=== PATIENT | male | born 1970 | race Caucasian/White ===

== ENCOUNTER 2019-09-05 16:24 | Emergency (ER) | payer OTHER ==
[2019-09-05 16:31] VITALS: BP 138/94; PULSE 98; RESP 18; TEMP 97.9
--- NOTE | 2019-09-05 17:44 | XR ---
EXAMINATION TYPE: XR finger LT DATE OF EXAM: 09/05/2019 CLINICAL HISTORY: pain Right second digit. TECHNIQUE: 3 views of the Right second digit are submitted. COMPARISON: None FINDINGS: No displaced fracture is seen with certainty. Joint spaces are well-preserved. Correlate for soft tissue injury. IMPRESSION: No acute displaced fracture or dislocation.
[2019-09-05] MEDS ORDERED: CEPHALEXIN 500MG STARTER PACK 4 CAP BTL PO STA (18:20)
--- NOTE | 2019-09-05 18:21 | ED ---
General Adult HPI - General Chief complaint: Skin/Abscess/Foreign Body Stated complaint: Finger pain Time Seen by Provider: 09/05/19 16:33 Source: patient, RN notes reviewed, old records reviewed Mode of arrival: ambulatory Limitations: no limitations - History of Present Illness Initial comments: 48-year-old male patient with no pertinent past history presents to ED chief complaint of nonhealing scab to lateral aspect of second digit left hand. Patient reports it has been ongoing for approximately 2 months. Patient was seen at an emergency room in [place] approximately one month ago with a prescribed a steroid pain. Patient denies any other complaints. Denies any systemic symptoms of infection. Denies any recent have a poor immune system including HIV or asplenia. Denies any IV drug use. Patient ports that it is slightly tender to touch. However denies any other complaints. Systemic: Pt denies fatigue, fever/chills, rash. Pt denies weakness, night sweats, weight loss. Neuro: Pt denies headache, visual disturbances, syncope or pre-syncope. HEENT: Pt denies ocular discharge or irritation, otalgia, rhinorrhea, pharyngitis or notable lymphadenopathy. Cardiopulmonary: Pt denies chest pain, SOB, heart palpitations, dyspnea on exertion. Abdominal/GI: Pt denies abdominal pain, n/v/d. : Pt denies dysuria, burning w/ urination, frequency/urgency. Denies new onset urinary or bowel incontinence. MSK: Pt denies myalgia, loss of strength or function in extremities. Neuro: Pt denies new onset weakness, paresthesias. - Related Data Previous Rx's Medication Instructions Recorded Cephalexin [Keflex] 500 mg PO Q6HR 7 Days #28 cap 09/05/19 Allergies Allergy/AdvReac Type Severity Reaction Status Date / Time No Known Allergies Allergy Verified 09/05/19 16:27 Review of Systems ROS Statement: Those systems with pertinent positive or pertinent negative responses have been documented in the HPI. ROS Other: All systems not noted in ROS Statement are negative. Past Medical History Past Medical History: No Reported History History of Any Multi-Drug Resistant Organisms: None Reported Past Surgical History: No Surgical Hx Reported Past Psychological History: No Psychological Hx Reported Smoking Status: Current every day smoker Past Alcohol Use History: Occasional Past Drug Use History: None Reported General Exam - General Exam Comments Initial Comments: Constitutional: NAD, AOX3, Pt has pleasant affect. HEENT: NC/AT, trachea midline, neck supple, no lymphadenopathy. Posterior pharyn x non erythematous, without exudates. External ears appear normal, without discharge. Mucous membranes moist. Eyes PERRLA, EOM intact. There is no scleral icterus. No pallor noted. Cardiopulmonary: RRR, no murmurs, rubs or gallops, no JVD noted. Lungs CTAB in anterior and posterior peck. No peripheral edema. Abdominal exam: Abdomen soft and non-distended. Abdomen non-tender to palpation in all 4 quadrants. Bowel sounds active in LLQ. No hepatosplenomegaly. No ecchymosis Neuro: CN II-XII grossly intact. No nuchal rigidity. No raccon eyes, no landry sign, no hemotympanum. No cervical spinal tenderness. MSK: Healing scab lateral aspect of second digit of left hand 1 cm diameter. Very small amount of surrounding erythema. Full active range of motion of digit. No percussion tenderness. Capillary refill less than 2 seconds. No streaking. Neurovascularly intact. No posterior calf tenderness bilaterally, homans sign negative bilaterally. Posterior tibialis and radial pulse +2 bilat erally. Sensation intact in upper and lower extremities. Full active ROM in upper and lower extremities, 5/5 stregnth. Limitations: no limitations Course Vital Signs 09/05/19 16:28 Temperature 97.9 F Pulse Rate 98 Respiratory 18 Rate Blood Pressure 138/94 O2 Sat by Pulse 95 Oximetry Medical Decision Making - Medical Decision Making 48-year-old male patient presents to ED chief complaint of nonhealing scab on index finger of left hand has been ongoing for 2 months. Denies any other complaints. Patient vital signs are stable, afebrile. Physical exam displayed a appears to be healing scab approximately 1 cm in diameter, very small amount of surrounding erythema. I film was negative. Full active range of motion of digit. No percussion tenderness, no concern for flexor tenosynovitis. Patient was placed on Keflex will be discharged with outpatient primary care and dermatology follow-up. Case discussed and patient seen by Dr. Nicole. Disposition Clinical Impression: Finger pain, left Disposition: HOME SELF-CARE Condition: Stable Instructions (If sedation given, give patient instructions): Wound Healing and Your Diet (ED), Chronic Wounds (ED) Additional Instructions: Take medication as directed. Follow up with primary care provider and d ermatology consult tomorrow. Return to ER if condition worsens in any way. Prescriptions: Cephalexin [Keflex] 500 mg PO Q6HR 7 Days #28 cap Is patient prescribed a controlled substance at d/c from ED?: No Referrals: None,Stated [Primary Care Provider] - 1-2 days [facility] [NON-STAFF] - 1-2 days Idania Sharma MD [STAFF PHYSICIAN] - 1-2 days
== END 2019-09-05 18:28 | disposition home or self-care (01) ==
LOC: EC 16:24
DX: M79.645 Pain in left finger(s) (principal); F17.200 Nicotine dependence, unspecified, uncomplicated
CPT/HCPCS: 99284

== ENCOUNTER 2021-01-11 14:50 | Emergency (ER) | payer OTHER ==
[2021-01-11 14:58] VITALS: BP 146/90; PULSE 115; RESP 16; TEMP 98.7
[2021-01-11] MEDS ORDERED: ACET/COD 300 MG/30 MG STARTER PACK 6 TAB BTL PO STA (15:13)
[2021-01-11] MEDS ORDERED: AMOXIC-POT CLAV 875MG STARTER PACK 2 TAB BTL PO STA (15:13)
[2021-01-11] MEDS ORDERED: BENZOCAINE 20 % GEL 15 GM TUBE MM STA (15:13)
[2021-01-11] MEDS ORDERED: KETOROLAC 15 MG/ML 1 ML VIAL IM STA (15:13)
--- NOTE | 2021-01-11 15:16 | ED ---
General Adult HPI - General Chief complaint: Dental/Oral Stated complaint: Tooth Abscess Time Seen by Provider: 01/11/21 15:06 Source: patient Mode of arrival: ambulatory Limitations: no limitations - History of Present Illness Initial comments: 50-year-old male patient presents to the emergency department today for evaluation of right lower dental pain. Patient states pain started on Thursday he developed swelling to the outside of his face. He denies any fever or chills. Denies nausea vomiting. Denies any trismus or difficulty swelling. States he does have very poor dentition is been trying to get into the dentist. Has not been on any antibiotics for this. Take over the counter pain medication. - Related Data Previous Rx's Medication Instructions Recorded Amoxic-Pot Clav 875-125Mg 1 tab PO Q12HR #20 tablet 01/11/21 [Augmentin 875-125] Ibuprofen [Motrin] 600 mg PO Q8HR PRN #30 tab 01/11/21 Allergies Allergy/AdvReac Type Severity Reaction Status Date / Time No Known Allergies Allergy Verified 09/05/19 16:27 Review of Systems ROS Statement: Those systems with pertinent positive or pertinent negative responses have been documented in the HPI. ROS Other: All systems not noted in ROS Statement are negative. Past Medical History Past Medical History: No Reported History History of Any Multi-Drug Resistant Organisms: None Reported Past Surgical History: No Surgical Hx Reported Past Psychological History: No Psychological Hx Reported Smoking Status: Current every day smoker Past Alcohol Use History: Occasional Past Drug Use History: None Reported General Exam Limitations: no limitations General appearance: alert, in no apparent distress, other (This is a well- developed, well-nourished adult male patient in no acute distress. Vital signs upon presentation temperature 98.7F, pulse 1:15, respirations 16, blood pressure 146/90, pulse ox 96% on room air.) Eye exam: Present: normal appearance, PERRL, EOMI. Absent: scleral icterus, conjunctival injection, periorbital swelling ENT exam: Present: mucous membranes moist, other (periapical abscess noted to the area surrounding teeth #s 28 and 29 which are fractured down to gumline. There is surrounding erythema and tenderness.). Absent: normal oropharynx Neck exam: Present: normal inspection. Absent: tenderness, meningismus, lymphadenopathy Respiratory exam: Present: normal lung sounds bilaterally. Absent: respiratory distress, wheezes, rales, rhonchi, stridor Cardiovascular Exam: Present: regular rate, normal rhythm, normal heart sounds. Absent: systolic murmur, diastolic murmur, rubs, gallop, clicks Neurological exam: Present: alert, oriented X3, CN II-XII intact Psychiatric exam: Present: normal affect, normal mood Skin exam: Present: warm, dry, intact, normal color. Absent: rash Course Vital Signs 01/11/21 14:54 Temperature 98.7 F Pulse Rate 115 H Respiratory 16 Rate Blood Pressure 146/90 O2 Sat by Pulse 96 Oximetry Procedures - Incision & Drainage Consent Obtained: verbal consent Indication: dental abscess Site: other (periapical) Size (cm): 3 Anesthetic Used: benzocaine 0.25% (topical) Needle Aspiration Performed?: Yes I&D Drainage Obtained: Pus, Blood Patient Tolerated Procedure: well, no complications Medical Decision Making - Medical Decision Making 50-year-old male patient presents to the emergency department today for evaluation of pain and swelling to the right lower dentition. Physical examination did reveal facial swelling. No erythema. Intraoral inspection did reveal periapical abscess near teeth #28 and 29. Orajel was applied, I did puncture the abscess with an 18-gauge needle and had large amount of foul- smelling pus and bloody drainage. Patient was started on Augmentin. Given medication for pain. Instructed to follow-up with dentistry as soon as possible. Return parameters were discussed in detail. He verbalizes understanding and agrees with this plan. My attending is Dr. Dennis. Disposition Clinical Impression: Dental abscess Disposition: HOME SELF-CARE Condition: Good Instructions (If sedation given, give patient instructions): Dental Abscess (ED), Toothache (ED) Additional Instructions: Complete antibiotics in full. Take medications as directed for pain. Follow up with dentist as soon as possible. Return to the emergency department for any new, worsening, or concerning symptoms. Consider calling the [facility] . Prescriptions: Amoxic-Pot Clav 875-125Mg [Augmentin 875-125] 1 tab PO Q12HR #20 tablet Ibuprofen [Motrin] 600 mg PO Q8HR PRN #30 tab PRN Reason: Pain Is patient prescribed a controlled substance at d/c from ED?: No Referrals: None,Stated [Primary Care Provider] - 1-2 days Time of Disposition: 15:56
== END 2021-01-11 16:05 | disposition home or self-care (01) ==
LOC: EC 14:50
DX: K04.7 Periapical abscess without sinus (principal); S02.5XXA Fracture of tooth (traumatic), initial encounter for closed fracture; F17.200 Nicotine dependence, unspecified, uncomplicated; X58.XXXA Exposure to other specified factors, initial encounter
CPT/HCPCS: 41800; 99282

== ENCOUNTER 2023-04-26 02:41 | Inpatient (IN) | payer OTHER ==
[2023-04-26] MEDS ORDERED: LORazepam 2 MG/ML INJ IM PRN (02:43)
[2023-04-26] MEDS ORDERED: SODIUM CHLORIDE 0.9% 1,000 ML IV STA (02:43)
[2023-04-26] MEDS ORDERED: HALOPERIDOL LACTATE 5 MG/ML 1 ML VIAL IM PRN (02:43)
[2023-04-26 03:01] LABS: Basophils # (A) 0.1 k/uL (0-0.2); Basophils % (A) 1 %; Eosinophils # (A) 0.4 k/uL (0-0.7); Eosinophils % (A) 4 %; HCT 41.9 % (39.0-53.0); HGB 14.3 gm/dL (13.0-17.5); Lymphocytes % (A) 36 %; MCH 34.6 pg (25.0-35.0); MCV 101.6 fL (80.0-100.0); Mean Platelet Volume 7.9; Monocytes # (A) 0.7 k/uL (0-1.0); Monocytes % (A) 8 %; Neutrophils # (A) 4.1 k/uL (1.3-7.7); Neutrophils % (A) 49 %; Platelet Count 182 k/uL (150-450); RBC 4.13 m/uL (4.30-5.90); WBC 8.4 k/uL (3.8-10.6)
[2023-04-26 03:10] LABS: INR 0.9 (<1.2); Partial Thromboplastin Time 22.2 sec (22.0-30.0); Prothrombin Time 9.5 sec (9.0-12.0)
[2023-04-26 03:13] LABS: ALT 45 U/L (4-49); AST 66 U/L (17-59); African American GFR (CKD) >90 (>60 ml/min/1.73 sqM); Albumin 3.8 g/dL (3.5-5.0); Alkaline Phosphatase 53 U/L (38-126); Anion Gap 12 mmol/L; Blood Urea Nitrogen 14 mg/dL (9-20); Calcium 8.5 mg/dL (8.4-10.2); Carbon Dioxide 20 mmol/L (22-30); Chloride 105 mmol/L (98-107); Glucose 106 mg/dL (74-99); Non-African American GFR(CKD) >90 (>60 ml/min/1.73 sqM); Sodium 137 mmol/L (137-145); Total Bilirubin 0.3 mg/dL (0.2-1.3)
--- NOTE | 2023-04-26 03:16 | ED ---
General Adult HPI - General Chief complaint: Alcohol Stated complaint: ETOH Time Seen by Provider: 04/26/23 02:42 Source: patient, police, EMS, RN notes reviewed, old records reviewed Mode of arrival: EMS Limitations: no limitations - History of Present Illness Initial comments: Patient is a 52-year-old male who presents with the department acute ataxia with alcohol as well as combative with police as well as EMS. Per EMS, patient was found down outside a bar. He was lying on the ground. Apparently unresponsive is bystanders were trying to awaken him. As soon as EMS arrived, patient woke up with sternal rubbing. He began punching at EMS as well as police. Patient was placed in handcuffs and brought to the emergency department for further e valuation. Smells of alcohol. His acutely intoxicated. Does appear somewhat confused but knows what year it is, who he is. Uncertain where he is. Uncertain what happened. Denies any other acute complaints at this time. Presents for further evaluation at this time. Does endorse drinking alcohol this evening. - Related Data Home Medications Medication Instructions Recorded Confirmed Unable To Assess [Unable to Assess] 04/26/23 04/26/23 Allergies Allergy/AdvReac Type Severity Reaction Status Date / Time No Known Allergies Allergy Verified 09/05/19 16:27 Review of Systems ROS Statement: Those systems with pertinent positive or pertinent negative responses have been documented in the HPI. Review of Systems: CONST: Denies fever EYES: Denies blurry vision ENT: Denies nasal congestion C/V: Denies Chest pain RESP: Denies shortness of breath GI: Denies abdominal pain : Denies dysuria SKIN: Denies rash. MSK: Denies joint pain. NEURO: Denies headache ROS Other: All systems not noted in ROS Statement are negative. Past Medical History Past Medical History: No Reported History History of Any Multi-Drug Resistant Organisms: None Reported Past Surgical History: No Surgical Hx Reported Past Psychological History: No Psychological Hx Reported Smoking Status: Current every day smoker Past Alcohol Use History: Occasional Past Drug Use History: None Reported General Exam - General Exam Comments Initial Comments: General: Appears in no acute distress. HEAD: Normal with no signs of head trauma. EYES: PERRLA, EOMI, conjunctiva normal, no discharge. Pupils 3 mm and equal bilaterally. ENT: Hearing grossly intact, normal oropharynx. RESPIRATORY: Clear breath sounds bilaterally. No wheezes, rales, or rhonchi. C/V: Regular rate and rhythm. S1 and S2 auscultated, no edema, peripheral pulses 2+ and intact throughout ABD: Abd is soft, nontender, nondistended EXT: Normal range of motion, no obvious deformity SKIN: No rashes or lesions observed on exposed skin. NEURO: Alert and oriented 2-3. Is acutely intoxicated with alcohol. Moving all 4 extremities. No obvious deficits. Limitations: no limitations Course Vital Signs 04/26/23 04/26/23 04/26/23 02:42 08:09 11:12 Temperature 98.1 F 98 F 98.9 F Pulse Rate 88 68 92 Respiratory 18 20 16 Rate Blood Pressure 134/89 92/60 109/67 O2 Sat by Pulse 99 95 96 Oximetry Procedures - Restraint - Face to Face Restraint Occurrence 1 Patient's Immediate Situation: Endangers others' safety, Endangers staff safety Patient's Reaction to the Intervention: Angry Patient's Medical & Behavioral Condition: Awake Need to Continue or Terminate Restraint or Seclusion: Continue Face to Face Eval of Restraint Date: 04/26/23 Face to Face Eval of Restraint Time: 05:30 Medical Decision Making - Medical Decision Making Was pt. sent in by a medical professional or institution (, PA, RETIREMENT PLAN SPECIALIST, urgent care, hospital, or long-term...) When possible be specific @ -No Did you speak to anyone other than the patient for history (EMS, parent, family, police, friend...)? What history was obtained from this source @ -No Did you review nursing and triage notes (agree or disagree)? Why? @ -I reviewed and agree with nursing and triage notes Were old charts reviewed (outside hosp., previous admission, EMS record, old EKG, old radiological studies, urgent care reports/EKG's, long-term records)? Report findings @ -No old charts were reviewed Differential Diagnosis (chest pain, altered mental status, abdominal pain women, abdominal pain men, vaginal bleeding, weakness, fever, dyspnea, syncope, headache, dizziness, GI bleed, back pain, seizure, CVA, palpatations, mental health, musculoskeletal)? @ -Differential Altered Mental Status: Hypoglycemia, DKA, hypercapnia, ETOH, overdose, CO poisoning, trauma, myxedema coma, HTN encephalopathy, infection, encephalitis, psychosis, intercranial hemorrhage, hepatic encephalopathy, meningitis, CVA, this is not meant to be an all-inclusive list EKG interpreted by me (3pts min.). @ -As above X-rays interpreted by me (1pt min.). @ -Chest x-ray revealed no obvious acute cardiopulmonary process. CT interpreted by me (1pt min.). @ -Pending U/S interpreted by me (1pt. min.). @ -None done What testing was considered but not performed or refused? (CT, X-rays, U/S, labs)? Why? @ -None What meds were considered but not given or refused? Why? @ -None Did you discuss the management of the patient with other professionals (professionals i.e. , PA, RETIREMENT PLAN SPECIALIST, lab, RT, psych nurse, social sciences professor, internet sales associate, teacher, contracts officer, piano case and bench assembler)? Give summary @ -No Was smoking cessation discussed for >3mins.? @ -No Was critical care preformed (if so, how long)? @ -No Were there social determinants of health that impacted care today? How? (Homelessness, low income, unemployed, alcoholism, drug addiction, transportation, low edu. Level, literacy, decrease access to med. care, longterm, rehab)? @ -No Was there de-escalation of care discussed even if they declined (Discuss DNR or withdrawal of care, Hospice)? DNR status @ -No What co-morbidities impacted this encounter? (DM, HTN, Smoking, COPD, CAD, Cancer, CVA, ARF, Chemo, Hep., AIDS, mental health diagnosis, sleep apnea, morbid obesity)? @ -None Was patient admitted / discharged? Hospital course, mention meds given and route, prescriptions, significant lab abnormalities, going to OR and other pertinent info. @ -Based on the patient's presentation and physical exam, I'm concerned for acute alcohol intoxication for the patient. Cannot rule out other etiology at this time and therefore broad workup will be obtained including CT brain. He was in agreement this plan. He initially was not cooperative but became cooperative. Vital signs are within acceptable limits. When necessary Haldol and Ativan ordered if the patient becomes agitated again but currently is cooperative. EKG showed no evidence of acute ischemia. Patient's laboratory studies are remarkable for alcohol level of 439. Remainder of the labs are within acceptable limits.Chest x-ray showed no evidence of acute cardiopulmonary process. CT brain was attempted multiple times. Patient became more agitated at one point, started up and hit his head on the TV causing a small laceration/abrasion. This will require closure. No double provider Demetris will close this. He required multiple medications for agitation and also was restrained. [id number] that was completed by myself. Patient urinated and vomited in the CT scanner on initial attempts and was agitated on other times. Finally patient was able to obtain CT imaging and this is still pending. Patient signed out to Dr. Sheriff pending results of CT and will be admitted afterwards. Undiagnosed new problem with uncertain prognosis? @ -No Drug Therapy requiring intensive monitoring for toxicity (Heparin, Nitro, Insulin, Cardizem)? @ -No Were any procedures done? @ -No Diagnosis/symptom? @ -Alcohol Intoxication, fall, head abrasion Acute, or Chronic, or Acute on Chronic? @ -Acute Uncomplicated (without systemic symptoms) or Complicated (systemic symptoms)? @ -Complicated Side effects of treatment? @ -none Exacerbation, Progression, or Severe Exacerbation] @ -no Poses a threat to life or bodily function? @ -Yes - Lab Data Result diagrams: 04/26/23 02:53 04/26/23 02:53 Lab Results 04/26/23 04/26/23 04/26/23 Range/Units 02:53 02:53 02:53 WBC 8.4 (3.8-10.6) k/uL RBC 4.13 L (4.30-5.90) m/uL Hgb 14.3 (13.0-17.5) gm/dL Hct 41.9 (39.0-53.0) % MCV 101.6 H (80.0-100.0) fL MCH 34.6 (25.0-35.0) pg MCHC 34.0 (31.0-37.0) g/dL RDW 12.0 (11.5-15.5) % Plt Count 182 (150-450) k/uL MPV 7.9 Neutrophils % 49 % Lymphocytes % 36 % Monocytes % 8 % Eosinophils % 4 % Basophils % 1 % Neutrophils # 4.1 (1.3-7.7) k/uL Lymphocytes # 3.0 (1.0-4.8) k/uL Monocytes # 0.7 (0-1.0) k/uL Eosinophils # 0.4 (0-0.7) k/uL Basophils # 0.1 (0-0.2) k/uL PT 9.5 (9.0-12.0) sec INR 0.9 (<1.2) APTT 22.2 (22.0-30.0) sec Sodium 137 (137-145) mmol/L Potassium 4.0 (3.5-5.1) mmol/L Chloride 105 (98-107) mmol/L Carbon Dioxide 20 L (22-30) mmol/L Anion Gap 12 mmol/L BUN 14 (9-20) mg/dL Creatinine 0.64 L (0.66-1.25) mg/dL Est GFR (CKD-EPI)AfAm >90 (>60 ml/min/1.73 sqM) Est GFR (CKD-EPI)NonAf >90 (>60 ml/min/1.73 sqM) Glucose 106 H (74-99) mg/dL POC Glucose (mg/dL) (70-110) mg/dL POC Glu Tread Tuber Machine Operator ID Calcium 8.5 (8.4-10.2) mg/dL Total Bilirubin 0.3 (0.2-1.3) mg/dL AST 66 H (17-59) U/L ALT 45 (4-49) U/L Alkaline Phosphatase 53 (38-126) U/L Ammonia (<30) umol/L Total Protein 6.0 L (6.3-8.2) g/dL Albumin 3.8 (3.5-5.0) g/dL Serum Alcohol 439 H* mg/dL 04/26/23 04/26/23 Range/Units 02:53 03:58 WBC (3.8-10.6) k/uL RBC (4.30-5.90) m/uL Hgb (13.0-17.5) gm/dL Hct (39.0-53.0) % MCV (80.0-100.0) fL MCH (25.0-35.0) pg MCHC (31.0-37.0) g/dL RDW (11.5-15.5) % Plt Count (150-450) k/uL MPV Neutrophils % % Lymphocytes % % Monocytes % % Eosinophils % % Basophils % % Neutrophils # (1.3-7.7) k/uL Lymphocytes # (1.0-4.8) k/uL Monocytes # (0-1.0) k/uL Eosinophils # (0-0.7) k/uL Basophils # (0-0.2) k/uL PT (9.0-12.0) sec INR (<1.2) APTT (22.0-30.0) sec Sodium (137-145) mmol/L Potassium (3.5-5.1) mmol/L Chloride (98-107) mmol/L Carbon Dioxide (22-30) mmol/L Anion Gap mmol/L BUN (9-20) mg/dL Creatinine (0.66-1.25) mg/dL Est GFR (CKD-EPI)AfAm (>60 ml/min/1.73 sqM) Est GFR (CKD-EPI)NonAf (>60 ml/min/1.73 sqM) Glucose (74-99) mg/dL POC Glucose (mg/dL) 88 (70-110) mg/dL POC Glu Tread Tuber Machine Operator ID Ralph Menard Calcium (8.4-10.2) mg/dL Total Bilirubin (0.2-1.3) mg/dL AST (17-59) U/L ALT (4-49) U/L Alkaline Phosphatase (38-126) U/L Ammonia <9 (<30) umol/L Total Protein (6.3-8.2) g/dL Albumin (3.5-5.0) g/dL Serum Alcohol mg/dL - EKG Data -: EKG Interpreted by Me EKG Comments: 12-lead Electrocardiogram Interpretation Note EKG was reviewed and interpreted by myself. 12-lead ECG performed at 0249 is interpreted by me as revealing normal sinus rhythm at a rate of 85 beats per minute. [place] is normal. NV interval is 152 ms, QRS duration is 116 ms, QTc is 407 ms.. There were no ST or T wave abnormalities to suggest myocardial ischemia or injury. R wave progression across the precordium was satisfactory. By my interpretation this EKG is non-diagnostic for acute ischemia. Disposition Clinical Impression: Alcoholic intoxication, Fall, Abrasion Disposition: ADMITTED IP TO THIS HOSP Condition: Stable
[2023-04-26 03:30] LABS: Alcohol 439 mg/dL
[2023-04-26 04:00] LABS: Glucose,Whole Blood 88 mg/dL (70-110)
[2023-04-26] MEDS ORDERED: HALOPERIDOL LACTATE 5 MG/ML 1 ML VIAL IVP STA ×2 (04:32→05:31)
[2023-04-26] MEDS ORDERED: LORazepam 2 MG/ML INJ IV STA (05:33)
--- NOTE | 2023-04-26 06:01 | XR ---
EXAMINATION TYPE: XR chest 1V portable DATE OF EXAM: 04/26/2023 3:22 AM COMPARISON: None TECHNIQUE: XR chest 1V portable Portable AP radiograph of the chest. CLINICAL INDICATION:Male, 52 years old with history of altered mental status; FINDINGS: Patient is rotated which limits evaluation. Lungs/Pleura: There is no evidence of pleural effusion, focal consolidation, or pneumothorax. Pulmonary vascularity: Unremarkable. Heart/mediastinum: Cardiomediastinal silhouette is unremarkable. Musculoskeletal: No acute osseous pathology. IMPRESSION: No acute cardiopulmonary disease/process.
[2023-04-26] MEDS ORDERED: TOPICAL SKIN ADHESIVE 1 EACH AMP TOPICAL ONE (06:42)
[2023-04-26] MEDS ORDERED: THIAMINE 100 MG/ML 2 ML VIAL IM STA (07:29)
[2023-04-26] MEDS ORDERED: LORazepam 2 MG/ML INJ IV PRN ×3 (07:29)
--- NOTE | 2023-04-26 07:39 | CT ---
EXAMINATION TYPE: CT brain wo con CT DLP: 1217.4 mGycm, Automated exposure control for dose reduction was used. DATE OF EXAM: 04/26/2023 7:18 AM COMPARISON: None. CLINICAL INDICATION:Male, 52 years old with history of Altered mental status, AMS; ETOH TECHNIQUE: Brain: Multiple axial CT images of the brain were obtained without IV contrast. Coronal sagittal refo rmats reviewed. FINDINGS: Brain: Extra-axial spaces: No abnormal extra-axial fluid collections. Ventricular system: Within normal limits Cerebral parenchyma: No acute intraparenchymal hemorrhage or mass effect. The llanos-white junction is well differentiated. Cerebellum: Unremarkable. Mass effect: No evidence of midline shift. Intracranial vasculature: unremarkable Soft tissues: Normal. Calvarium/osseous structures: No depressed skull fracture. Paranasal sinuses and mastoid air cells: The mastoid air cells are clear. Postsurgical changes of the bilateral maxillary sinuses. Moderate mucosal thickening with air-fluid level within the left maxill a sinus. Mild mucosal thickening of the right maxillary and right sphenoid sinus. Mild mucosal thicke bennie of the left ethmoid sinus. Opacification of the bilateral hypoplastic frontal sinuses. Visualized orbits: Orbital contents are intact. IMPRESSION: 1. No acute intracranial process. 2. Moderate paranasal sinus disease.
[2023-04-26] MEDS ORDERED: SODIUM CHLORIDE 0.9% 1,000 ML IV ONE (07:49)
[2023-04-26] MEDS ORDERED: SODIUM CHLORIDE 0.9% 500 ML 500 ML IV ONE (07:49)
[2023-04-26] MEDS ORDERED: SODIUM CHLORIDE 0.9% 1,000 ML IV SCH (08:00)
[2023-04-26 10:34] LABS: Appearance,Urine Clear (Clear); Bilirubin,Urine Negative (Negative); Blood,Urine Negative (Negative); Color,Urine Light Yellow; Glucose,Urine (UA) Negative (Negative); Ketones,Urine Negative (Negative); Leukocyte Esterase,Urine Negative (Negative); Nitrite,Urine Negative (Negative); Protein,Urine Negative (Negative); Specific Gravity,Urine 1.004 (1.001-1.035); Urobilinogen,Urine <2.0 mg/dL (<2.0)
[2023-04-26 10:46] LABS: Amphetamine Screen,Urine Not Detected (NotDetected); Benzodiazepines Screen,Urine Detected (NotDetected); Cocaine Screen,Urine Not Detected (NotDetected); Opiate Screen,Urine Not Detected (NotDetected); Phencyclidine Screen,Urine Not Detected (NotDetected); Urn Cannabinoid Scrn Not Detected (NotDetected)
[2023-04-26 10:47] LABS: Barbiturate Screen,Urine Not Detected (NotDetected); Methadone Screen, Urine Not Detected (NotDetected); Oxycodone Screen, Urine Not Detected (NotDetected); Tricyclic Antidepressant,Urine Not Detected (NotDetected)
[2023-04-26 11:13] VITALS: BP 109/67; PULSE 92; RESP 16; TEMP 98.9
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
[2023-04-27] MEDS ORDERED: ENOXAPARIN 40 MG/0.4 ML SYRINGE SQ SCH (09:00)
[2023-04-27] MEDS ORDERED: MULTIVITAMINS, THERA 1 EACH TAB PO SCH (09:00)
[2023-04-27] MEDS ORDERED: FOLIC ACID 1 MG TAB PO SCH (09:00)
[2023-04-27] MEDS ORDERED: THIAMINE 100 MG TAB PO SCH (09:00)
== END 2023-04-26 17:27 | disposition left against medical advice (07) | DRG 770 ==
LOC: EC 02:41 → 4SSUR 07:48
PROVIDERS: ADMIT Student in an Organized Health Care Education/Training Program; ATTEND Student in an Organized Health Care Education/Training Program
PROC: HZ2ZZZZ Detoxification Services for Substance Abuse Treatment (ICD-10-PCS; principal; 2023-04-26)
DX: F10.229 Alcohol dependence with intoxication, unspecified (principal); F17.210 Nicotine dependence, cigarettes, uncomplicated; S00.91XA Abrasion of unspecified part of head, initial encounter; R21 Rash and other nonspecific skin eruption; W19.XXXA Unspecified fall, initial encounter; Z53.29 Procedure and treatment not carried out because of patient's decision for other reasons; Y90.8 Blood alcohol level of 240 mg/100 ml or more; Y92.89 Other specified places as the place of occurrence of the external cause; Z78.1 Physical restraint status
CPT/HCPCS: 36415; 70450; 71045; 80053; 80306; 80320; 81003; 82140; 85025; 85610; 85730; 93005; 96361; 96372; 96374; 96375; 96376; 99285